=== PATIENT | female | born 1940 | race Native Hawaiian/Other Pacific Islander ===

== ENCOUNTER 2016-03-19 14:14 | Outpatient (CLI) | payer OTHER ==
[~2016-03-19 14:14] MED LIST: HYDR25TA60 PO; MECLIZINE25 MG OR; MIRAPEX ER1.5 MG OR; NEXIUM40 M1 PO; VESICARE5 MG OR; Z-PAK PO
[2016-03-19 15:16] LABS: PLATELET COUNT 199 K/uL (152-353)
[2016-03-19 15:38] LABS: POTASSIUM 4.3 mmol/L (3.6-5.2)
== END 2016-03-19 22:06 | disposition home or self-care (01) ==
LOC: LAB 14:14
PROVIDERS: Nurse Practitioner Family
DX: R53.83 Other fatigue (principal); Z79.899 Other long term (current) drug therapy; G20 Parkinson's disease; E55.9 Vitamin D deficiency, unspecified; Z51.81 Encounter for therapeutic drug level monitoring; Z00.00 Encounter for general adult medical examination without abnormal findings
CPT/HCPCS: 80053; 80061; 82306; 82607; 83036; 84439; 84443; 85027

== ENCOUNTER 2016-09-14 10:39 | Outpatient (CLI) | payer OTHER | END 2016-09-14 11:40 | disposition home or self-care (01) | LOC: RAD 10:39 | DX: M54.89 Other dorsalgia (principal); M41.86 Other forms of scoliosis, lumbar region ==

== ENCOUNTER 2017-09-01 15:03 | Outpatient (CLI) | payer OTHER ==
[2017-09-01 16:02] LABS: PLATELET COUNT 209 K/uL (152-353)
[2017-09-01 16:33] LABS: POTASSIUM 4.2 mmol/L (3.6-5.2)
== END 2017-09-01 22:47 | disposition home or self-care (01) ==
LOC: LAB 15:03
PROVIDERS: Nurse Practitioner Family
DX: G20 Parkinson's disease (principal); R53.82 Chronic fatigue, unspecified; R53.81 Other malaise; Z79.899 Other long term (current) drug therapy; Z51.81 Encounter for therapeutic drug level monitoring; E55.9 Vitamin D deficiency, unspecified
CPT/HCPCS: 80053; 80061; 82306; 82607; 83036; 84436; 84443; 85027

== ENCOUNTER 2018-06-13 14:41 | Emergency (ER) | payer OTHER ==
[~2018-06-13] VITALS: Ht 160 cm; Wt 54.0 kg
[2018-06-13] MEDS ORDERED: LISI5TAB10 PO (14:56)
[2018-06-13] MEDS ORDERED: PRAMIPEXOLE0.5 MG PO (14:57)
[2018-06-13 16:55] VITALS: BP 150/54; TEMP 98.4
== END 2018-06-13 16:55 | disposition home or self-care (01) ==
LOC: ED 14:41
DX: R44.2 Other hallucinations (principal); S90.822A Blister (nonthermal), left foot, initial encounter; W18.39XA Other fall on same level, initial encounter; Y92.098 Other place in other non-institutional residence as the place of occurrence of the external cause
CPT/HCPCS: 99282

== ENCOUNTER 2018-11-15 16:09 | Outpatient (CLI) | payer OTHER ==
[~2018-11-15 16:09] MED LIST changes: +LISI5TAB10 PO; +PRAMIPEXOLE0.5 MG PO
== END 2018-11-15 23:27 | disposition home or self-care (01) ==
LOC: RAD 16:09
DX: M25.532 Pain in left wrist (principal); W19.XXXA Unspecified fall, initial encounter; M54.5 Low back pain; S09.8XXA Other specified injuries of head, initial encounter

== ENCOUNTER 2019-01-02 12:27 | Emergency (ER) | payer OTHER ==
[~2019-01-02] VITALS: Ht 160 cm; Wt 49.4 kg
[2019-01-02 16:20] VITALS: BP 152/67; TEMP 97.7
== END 2019-01-02 16:20 | disposition home or self-care (01) ==
LOC: ED 12:27
DX: S09.8XXA Other specified injuries of head, initial encounter (principal); S80.02XA Contusion of left knee, initial encounter; W18.39XA Other fall on same level, initial encounter; Y92.242 Post office as the place of occurrence of the external cause
CPT/HCPCS: 99283

== ENCOUNTER 2019-07-03 16:19 | Outpatient (CLI) | payer OTHER | END 2019-07-03 19:44 | disposition home or self-care (01) | LOC: US 16:19 | DX: R60.0 Localized edema (principal); M79.662 Pain in left lower leg; M79.89 Other specified soft tissue disorders ==

== ENCOUNTER 2019-07-09 10:23 | Emergency (ER) | payer OTHER ==
[~2019-07-09] VITALS: Ht 160 cm; Wt 49.4 kg
[2019-07-09 10:29] VITALS: BP 155/70
[2019-07-09 11:25] LABS: PLATELET COUNT 178 K/uL (152-353)
[2019-07-09 11:30] LABS: POTASSIUM 3.8 mmol/L (3.6-5.2); SODIUM 142 mmol/L (136-145)
[2019-07-09 11:36] LABS: PARTIAL THROMBOPLASTIN TIME 22.2 SECONDS (24.5-33.6)
[2019-07-09 13:28] VITALS: TEMP 98.1
== END 2019-07-09 14:18 | disposition home or self-care (01) ==
LOC: ED 10:23
PROVIDERS: Hospitalist
DX: L03.116 Cellulitis of left lower limb (principal); L03.115 Cellulitis of right lower limb; S80.822A Blister (nonthermal), left lower leg, initial encounter; S80.821A Blister (nonthermal), right lower leg, initial encounter; I50.9 Heart failure, unspecified
CPT/HCPCS: 36415; 80053; 81000; 82550; 82553; 83880; 84484; 85027; 85610; 85730; 93005; 96360; 96365; 99284; J3370

== ENCOUNTER 2019-08-04 12:45 | Emergency (ER) | payer OTHER ==
[~2019-08-04] VITALS: Ht 160 cm; Wt 49.4 kg
[2019-08-04 12:45] VITALS: TEMP 97.8
[2019-08-04 13:16] LABS: PLATELET COUNT 188 K/uL (152-353)
[2019-08-04 13:27] LABS: POTASSIUM 4.3 mmol/L (3.6-5.2)
[2019-08-04 15:04] VITALS: BP 127/60
== END 2019-08-04 15:25 | disposition home or self-care (01) ==
LOC: ED 12:45
PROVIDERS: Family Medicine
DX: I10 Essential (primary) hypertension (principal); Z79.899 Other long term (current) drug therapy
CPT/HCPCS: 80053; 85027; 99283

== ENCOUNTER 2019-09-05 05:49 | Emergency (ER) | payer OTHER ==
[~2019-09-05] VITALS: Ht 167.6 cm; Wt 49.4 kg
[2019-09-05] MEDS ORDERED: MELOXICAM7.5 MG PO (06:27)
[2019-09-05] MEDS ORDERED: GLYCOPYRROL PO (06:36)
[2019-09-05 08:13] LABS: PLATELET COUNT 189 K/uL (152-353)
[2019-09-05 08:16] LABS: POTASSIUM 4.5 mmol/L (3.6-5.2)
[2019-09-05 12:00] VITALS: TEMP 98.8
[2019-09-05 13:47] VITALS: BP 165/51
== END 2019-09-05 14:21 | disposition still patient (30) ==
LOC: ED 05:49
PROVIDERS: General Practice
DX: I99.8 Other disorder of circulatory system (principal); S40.212A Abrasion of left shoulder, initial encounter; W18.39XA Other fall on same level, initial encounter; Y92.89 Other specified places as the place of occurrence of the external cause
CPT/HCPCS: 80053; 85027; 99283; 99284

== ENCOUNTER 2019-10-22 11:47 | Emergency (ER) | payer OTHER ==
[~2019-10-22] VITALS: Ht 167.6 cm; Wt 49.4 kg
[2019-10-22 11:47] VITALS: TEMP 98.2
[~2019-10-22 11:47] MED LIST changes: +GLYCOPYRROL PO; +MELOXICAM7.5 MG PO
[2019-10-22 19:01] VITALS: BP 138/60
== END 2019-10-22 19:01 | disposition home or self-care (01) ==
LOC: ED 11:56
DX: S40.021A Contusion of right upper arm, initial encounter (principal); S10.83XA Contusion of other specified part of neck, initial encounter; S70.02XA Contusion of left hip, initial encounter; S70.01XA Contusion of right hip, initial encounter; S40.011A Contusion of right shoulder, initial encounter; W18.39XA Other fall on same level, initial encounter; Y92.89 Other specified places as the place of occurrence of the external cause
CPT/HCPCS: 99283

== ENCOUNTER 2019-10-25 14:38 | Inpatient (IN) | payer OTHER ==
[~2019-10-25] VITALS: Ht 167.6 cm; Wt 60.5 kg
[2019-10-25 16:00] LABS: PLATELET COUNT 202 K/uL (152-353)
[2019-10-25 16:33] LABS: POTASSIUM 4.1 mmol/L (3.6-5.2)
[2019-10-25 17:10] VITALS: BP 151/67; TEMP 97.6; TEMP 97.63; Ht 167.6 cm; Wt 60.5 kg
[2019-10-25] MEDS ORDERED: PRAMIPEXOLE0.5 MG PO (17:46)
[2019-10-25] MEDS ORDERED: GLYCOPYRROL2 MG PO (17:48)
[2019-10-25 19:58] VITALS: BP 154/60; TEMP 97.9
[2019-10-25 23:46] VITALS: BP 114/40; TEMP 97.6
[2019-10-26 04:00] VITALS: BP 116/40; TEMP 98.1
[2019-10-26 05:16] LABS: PLATELET COUNT 164 K/uL (152-353)
[2019-10-26 05:55] LABS: POTASSIUM 3.8 mmol/L (3.6-5.2)
[2019-10-26 08:00] VITALS: BP 138/53; TEMP 98.2
[2019-10-26 12:00] VITALS: BP 142/51; TEMP 97.9
[2019-10-26 16:00] VITALS: BP 177/69; TEMP 97.9
[2019-10-26 20:26] VITALS: BP 169/67; TEMP 98.6
[2019-10-27] VITALS: BP 155/67; TEMP 98.8
[2019-10-27 04:00] VITALS: BP 140/65; TEMP 98.6
[2019-10-27 05:25] LABS: PLATELET COUNT 159 K/uL (152-353)
[2019-10-27 05:44] LABS: POTASSIUM 4.1 mmol/L (3.6-5.2)
[2019-10-27 08:00] VITALS: BP 174/66; TEMP 99.6
[2019-10-27 11:45] VITALS: BP 190/82; TEMP 97.9
[2019-10-27 16:00] VITALS: BP 164/81; TEMP 98.1
[2019-10-27 20:00] VITALS: BP 129/64; TEMP 98.6
[2019-10-28] VITALS (7 sets, daily range): BP systolic 126–182; BP diastolic 66–89; TEMP 97.5–98.8
[2019-10-28 05:26] LABS: PLATELET COUNT 159 K/uL (152-353)
[2019-10-28 06:00] LABS: POTASSIUM 4.4 mmol/L (3.6-5.2)
[2019-10-29 04:00] VITALS: BP 142/69; TEMP 97.8
[2019-10-29 05:40] LABS: PLATELET COUNT 170 K/uL (152-353)
[2019-10-29 08:00] VITALS: BP 182/78; TEMP 97.9
[2019-10-29 11:54] VITALS: BP 122/60; TEMP 97.3
[2019-10-29 15:55] VITALS: BP 120/68; TEMP 97.6
[2019-10-29 20:00] VITALS: BP 112/49; TEMP 98.2
[2019-10-29 23:56] VITALS: BP 124/61; TEMP 98.4
[2019-10-30 04:00] VITALS: BP 111/60; TEMP 98.2
[2019-10-30 06:06] LABS: PLATELET COUNT 189 K/uL (152-353)
[2019-10-30 06:28] LABS: POTASSIUM 4.1 mmol/L (3.6-5.2)
[2019-10-30 08:00] VITALS: BP 138/61; TEMP 97.6
[2019-10-30 12:00] VITALS: BP 124/55; TEMP 97.9
[2019-10-30 16:00] VITALS: BP 149/66; TEMP 98.1
[2019-10-30 20:00] VITALS: BP 132/43; TEMP 98.3
[2019-10-31 00:12] VITALS: BP 119/38; TEMP 98.6
[2019-10-31 04:00] VITALS: BP 120/44; TEMP 98
[2019-10-31 08:00] VITALS: BP 154/66; TEMP 102.7; TEMP 97.6
[2019-10-31 12:00] VITALS: BP 120/51; TEMP 97.9
[2019-10-31 13:27] LABS: POTASSIUM 4.1 mmol/L (3.6-5.2)
[2019-10-31 16:00] VITALS: BP 106/44; TEMP 98.5
[2019-10-31 20:00] VITALS: BP 111/45; TEMP 98.4
[2019-11-01] VITALS: BP 120/48; TEMP 98.8
[2019-11-01 04:00] VITALS: BP 123/51; TEMP 98.6
[2019-11-01 08:00] VITALS: BP 139/62; TEMP 98.2
[2019-11-01 11:56] VITALS: BP 146/69; TEMP 97.3
[2019-11-01 16:00] VITALS: BP 132/60; TEMP 97.9
[2019-11-01 19:47] VITALS: BP 145/74; TEMP 97.6
[2019-11-02] VITALS: BP 123/57; TEMP 98
[2019-11-02 12:00] VITALS: BP 154/71; TEMP 98.2
[2019-11-02 16:00] VITALS: BP 117/56; TEMP 98.3
[2019-11-02 19:41] VITALS: BP 134/75; TEMP 98.4
[2019-11-03] VITALS: BP 138/63; TEMP 98.1
[2019-11-03 04:00] VITALS: BP 129/76; TEMP 98.4
[2019-11-03 08:00] VITALS: BP 141/60; TEMP 97.9
[2019-11-03 12:00] VITALS: BP 165/71; TEMP 97.9
[2019-11-03 16:00] VITALS: BP 153/69; TEMP 98.2
[2019-11-03 20:10] VITALS: BP 157/65; TEMP 98.3
[2019-11-04] VITALS: BP 155/61; TEMP 97.5
[2019-11-04 04:00] VITALS: BP 181/60; TEMP 97.7
[2019-11-04 08:00] VITALS: BP 159/69; TEMP 97.7
[2019-11-04 12:00] VITALS: BP 105/46; TEMP 97.8
[2019-11-04 16:00] VITALS: BP 131/55; TEMP 98.5
[2019-11-04 20:18] VITALS: BP 137/64; TEMP 97.8
[2019-11-05] VITALS: BP 143/65; TEMP 98.3
[2019-11-05 03:46] VITALS: BP 161/61; TEMP 98.1
[2019-11-05 08:00] VITALS: BP 155/72; TEMP 97.4
[2019-11-05 12:00] VITALS: BP 115/52; TEMP 97.6
[2019-11-05 16:00] VITALS: BP 140/63; TEMP 98.1
[2019-11-05 19:52] VITALS: BP 137/63; TEMP 98.3
[2019-11-06 00:23] VITALS: BP 128/52; TEMP 98.7
[2019-11-06 04:00] VITALS: BP 159/72; TEMP 97.7
[2019-11-06 08:00] VITALS: BP 197/87; TEMP 98.2
[2019-11-06 11:53] VITALS: BP 103/40; TEMP 98.4
== END 2019-11-06 14:12 | DRG 682 ==
LOC: MED/SURG 14:38
PROVIDERS: Internal Medicine; ADMIT Internal Medicine Endocrinology, Diabetes & Metabolism
DX: N17.9 Acute kidney failure, unspecified (principal); G92 Toxic encephalopathy; M62.82 Rhabdomyolysis; R44.2 Other hallucinations; L03.116 Cellulitis of left lower limb; L03.115 Cellulitis of right lower limb; I13.0 Hypertensive heart and chronic kidney disease with heart failure and stage 1 through stage 4 chronic kidney disease, or unspecified chronic kidney disease; F02.81 Dementia in other diseases classified elsewhere, unspecified severity, with behavioral disturbance; G20 Parkinson's disease; Z91.81 History of falling; N18.3 Chronic kidney disease, stage 3 (moderate); I50.89 Other heart failure; G30.8 Other Alzheimer's disease
CPT/HCPCS: 36415; 80048; 80053; 81000; 82306; 82550; 82553; 82607; 82746; 84443; 85027; 87040; 87077; 87086; 87088; 87185; 87186; 87205; 93005; 96365; 96366; J1650; J1940; J3490

== ENCOUNTER 2019-12-26 12:29 | Outpatient (CLI) | payer OTHER ==
[~2019-12-26 12:29] MED LIST changes: +GLYCOPYRROL2 MG PO
== END 2019-12-26 19:06 | disposition home or self-care (01) ==
LOC: LAB 12:29
DX: Z01.818 Encounter for other preprocedural examination (principal); Z20.828 Contact with and (suspected) exposure to other viral communicable diseases
CPT/HCPCS: 87635; G2023; U0003